=== PATIENT | male | born 1950 | race African-American/Black ===

== ENCOUNTER 2018-09-04 08:43 | Emergency (ER) | payer MEDICARE, MEDICAID ==
[2018-09-04 09:13] LABS: #Lymphocytes 1.1 thou/uL (1.20-3.40); #Monocytes 0.5 thou/uL (0.11-0.59); #Neutrophils 5.2 thou/uL (1.40-6.50); %Basophils 0.2 % (0.0-1.0); %Eosinophils 0.7 % (0.0-10.0); %Lymphocytes 16.7 % (21.0-51.0); %Monocytes 6.5 % (0.0-10.0); %Neutrophils 75.9 % (42.0-75.0); Hemoglobin 13.4 g/dL (14.0-18.0); Mean Corpuscular HGB CONC 32.5 g/dL (32.0-36.0); Mean Corpuscular Hemoglobin 28.8 pg (27.0-31.0); Mean Corpuscular Volume 88.6 fL (78.0-98.0); Mean Platelet Volume 10.6 fL (7.4-10.4); Platelet Count 157 thou/uL (130-400); RBC Distribution Width 13.4 % (11.5-14.5); Red Blood Cell (RBC) Count 4.65 mill/uL (4.70-6.10); White Blood Cell (WBC) Count 6.8 thou/uL (4.8-10.8)
[2018-09-04 09:46] LABS: ALT (SGPT) 8 U/L (8-55); AST (SGOT) 16 U/L (5-34); Albumin 4.3 g/dL (3.4-4.8); Alkaline Phosphatase 63 U/L (40-150); Anion Gap 12 mmol/L (10-20); BUN (Urea Nitrogen) 10 mg/dL (8.4-25.7); Bilirubin, Total 0.6 mg/dL (0.2-1.2); Calc. Creatinine Clearance 0 mL/min (70-130); Calcium 9.8 mg/dL (7.8-10.44); Carbon Dioxide 28 mmol/L (23-31); Chloride 101 mmol/L (98-107); Estimated GFR-MDRD Greater than 90; Globulin 3.2 g/dL (2.4-3.5); Glucose 154 mg/dL (80-115); Protein, Total 7.5 g/dL (5.8-8.1); Sodium 137 mmol/L (136-145)
--- NOTE | 2018-09-04 09:51 | CT ---
BRAIN CT WITHOUT IV CONTRAST: Date: 09/04/18 HISTORY: Syncope. FINDINGS: Minimal atrophy and chronic white matter ischemic change. No focal mass or midline shift. No intra or extra-axial hemorrhage. Evidence for chronic sinus mucosal changes, particularly involving the maxil leoncio sinuses. Mastoids are clear. IMPRESSION: Atrophy and chronic white matter ischemic change. No mass or bleed, or other acute intracranial proce ss. POS: OFF
--- NOTE | 2018-09-04 09:52 | RAD ---
SINGLE VIEW CHEST: Date: 09/04/18 COMPARISON: None. HISTORY: Syncope. FINDINGS: Single view of the chest shows a normal sized cardiomediastinal silhouette. There is no evidence of c onsolidation, mass, or pleural effusion. The bones are unremarkable. IMPRESSION: No evidence of acute cardiopulmonary disease. POS: [facility]
--- NOTE | 2018-09-08 15:12 | EKG ---
Test Reason : Blood Pressure : / mmHG Vent. Rate : 065 BPM Atrial Rate : 065 BPM P-R Int : 188 ms QRS Dur : 084 ms QT Int : 424 ms P-R-T Axes : 049 006 042 degrees QTc Int : 440 ms Normal sinus rhythm Nonspecific T wave abnormality Abnormal ECG Confirmed by AUBREE TOWNSEND ([id number]), scientific editor FARIDEH WAGNER ([id number] on 09/08/2018 3:12:32 PM Referred By: Confirmed By:AUBREE TOWNSEND
== END 2018-09-04 11:21 ==
LOC: ERS 08:43
DX: R55 Syncope and collapse (principal); I10 Essential (primary) hypertension; G30.9 Alzheimer's disease, unspecified; J44.9 Chronic obstructive pulmonary disease, unspecified; N40.0 Benign prostatic hyperplasia without lower urinary tract symptoms; F32.9 Major depressive disorder, single episode, unspecified; Z79.899 Other long term (current) drug therapy
CPT/HCPCS: 36415; 70450; 71045; 80053; 84484; 85025; 93005; J7620